=== PATIENT | male | born 1955 | race Caucasian/White ===

== ENCOUNTER 2017-06-03 05:40 | Day surgery (SDC) | payer OTHER ==
[~2017-06-03] VITALS: Ht 177.8 cm; Wt 95.2 kg
[~2017-06-03 05:40] MED LIST: CO Q-10100 MG PO; FISH OIL 1,0001 EAC3 PO; LOSARTAN POTASS25 MG PO; MELOXICAM15 MG PO; ONE DAILY1 EAC1 PO; VITAMIN C1000 MG PO; VITAMIN D31000 UNI1 PO; ZINC50 MG PO; ZYRTEC10 MG PO
--- NOTE | 2017-06-03 08:04 | NUR ---
06/03/17 0804 Zelda Addison 0605-PATIENT ARRIVED TO PACU ON 8L MASK O2 SAT 100% PATIENT NONAROUSABLE. ORAL AIRWAY IN PLACE. RIGHT KNEE DRESSING CDI. SR. GOOD CAP REFILL, WARMTH AND PEDAL PULSE TO RLE.
--- NOTE | 2017-06-03 08:39 | NUR ---
ICED WATER AND COFFEE GIVEN. CALL LIGHT W/IN REACH. DAUGHTER @ BS.
[2017-06-03] MEDS ORDERED: ULTRAM50 MG PO (09:05)
--- NOTE | 2017-06-03 09:27 | NUR ---
PT UP TO BR W/RN STANDBY. PT AMBULATES WELL AND REPORTS SUCCESSFUL VOID. PT DRINKING COFFEE AND REQ DC HOME. DC INSTRUCTIONS GIVEN IN PRESENCE OF DAUGHTER AND BOTH VERBALIZE UNDERSTANDING. PT DRESSING SELF AND DAUGHTER GETTING THE CAR.
--- NOTE | 2017-06-08 11:45 | OR ---
[facility] [address] [place], [place] [address] Signed DATE OF OPERATION: 06/03/2017 SURGEON: Arcadio Meyer MD PREOPERATIVE DIAGNOSIS: Medial meniscal tear and ACL tear, right knee. POSTOPERATIVE DIAGNOSIS: Medial meniscal tear, right knee. Areas of grade 2 to grade 3 chondral change management analyst the weightbearing portion of the medial femoral condyle with reciprocal grade 2 to grade 3 changes over the posterior aspect of the tibial plateau medially. PROCEDURE: Knee arthroscopy with partial medial meniscectomy. ANESTHESIA: General. SPECIMENS AND COMPLICATIONS: There were no specimens or complications. TOURNIQUET TIME: About 25 minutes. WHAT WAS DONE: The patient was taken to the operating room, placed on the table in a supine position. After anesthesia was induced and airway secured, the patient was positioned and prepped and draped in a routine sterile fashion. The leg was exsanguinated with an Esmarch bandage. Pneumatic tourniquet was inflated to 300 mmHg pressure. The outflow cannula was placed superomedially and the arthroscope was placed anterolaterally. An anteromedial portal was created using transillumination and localization with a spinal needle. We then did a diagnostic arthroscopy. Arthroscopy of the knee revealed a moderate hypertrophic synovitis in the suprapatellar pouch, but no foreign bodies. There was mild grade 1 to grade 2 change in the patellofemoral joint. The medial recess was unremarkable. The medial compartment revealed a complex tear of the posterior horn of the medial meniscus along with significant chondral changes over the weightbearing portion of the femoral condyle and over the posterior aspect of the tibial plateau. Intercondylar notch revealed an intact ACL. We tested it with a probe and also with Marion's maneuver with the scope in place and it seemed to be both physically intact and functionally intact. The lateral compartment then was examined and that was Electronically Signed By: ARCADIO MEYER MD 06/08/17 1145 PATIENT NAME: DANIE DALAL OPERATIVE REPORT DATE OF : 59 REPORT #: [id number] PHYSICIAN: ARCADIO MEYER MD PCP: KYE MILLS PAC REPORT IS CONFIDENTIAL AND NOT TO BE RELEASED WITHOUT AUTHORIZATION [facility] [address] [place], [place] [address] Signed unremarkable. The lateral meniscus, lateral femoral condyle, and the lateral tibial plateau were overall unremarkable. We were then able to move the scope in the lateral recess and there were no additional findings. We then returned the scope to the medial compartment. Using basket forceps, we completed the meniscal tear. Several shards were then drawn out of the knee. We then used a 4-0 motorized shaver to gently debride the edges of the meniscectomy and smooth and contour the edges. The knee was then copiously irrigated and drained. We sought any residual meniscal shards again in the medial lateral recess and the suprapatellar pouch and found none. The knee was then copiously irrigated and drained. The portals were closed with 3-0 nylon and a sterile dressing applied. The patient was awakened, taken to the recovery room where he arrived in stable condition. Counts were correct and antibiotic protocols were followed. Arcadio Meyer MD WFB/MODL /[id number] Copies: ~ Electronically Signed By: ARCADIO MEYER MD 06/08/17 1145 PATIENT NAME: DANIE DALAL SHANNAN OPERATIVE REPORT DATE OF : 59 REPORT #: [id number] PHYSICIAN: ARCADIO MEYER MD PCP: KYE MILLS PAC REPORT IS CONFIDENTIAL AND NOT TO BE RELEASED WITHOUT AUTHORIZATION
== END 2017-06-03 09:35 | disposition home or self-care (01) ==
LOC: DS 05:40 → OPS 05:40 → DS 08:30 → OPS 09:35
PROVIDERS: Orthopaedic Surgery
PROC: 0SBC4ZZ Excision of Right Knee Joint, Percutaneous Endoscopic Approach (ICD-10-PCS; principal; 2017-06-03 06:45)
DX: S83.231A Complex tear of medial meniscus, current injury, right knee, initial encounter (principal); I10 Essential (primary) hypertension; F17.210 Nicotine dependence, cigarettes, uncomplicated; Z79.899 Other long term (current) drug therapy; X58.XXXA Exposure to other specified factors, initial encounter
CPT/HCPCS: 01400; J0131; J0690; J1100; J1885; J2405; J2704; J3301; J3475; J7120

== ENCOUNTER 2019-02-27 06:25 | Day surgery (SDC) | payer OTHER ==
[~2019-02-27 06:25] MED LIST changes: +HYDROCHLOROTH12.5 MG PO; +ULTRAM50 MG PO
--- NOTE | 2019-02-27 08:31 | NUR ---
02/27/19 0831 Kellie Valles 0821- PT ARRIVES TO PACU EASILY AROUSABLE TO VOICE. PT REPORTS NO PAIN OR NAUSEA AND FALLS BACK TO SLEEP. RESP EVEN AND UNLABORED. OXYGEN SAT MID 90'S ON RA. 0829- PT REQUESTING COFFEE. PT SAT UP IN BED. TOLERATING WELL. COFFEE GIVEN.
--- NOTE | 2019-02-27 15:57 | OR ---
[facility] [address] [place], [place] [address] Signed DATE OF OPERATION: 02/27/2019 SURGEON: Eryn Reynaga MD PREOPERATIVE DIAGNOSIS: History of multiple polyps in 2018 at least three tubular adenomas. POSTOPERATIVE DIAGNOSES: 1. Multiple hyperplastic polyps of rectosigmoid. 2. Polyp of left transverse and hepatic flexure and possible polyp of cecum. PROCEDURE: Total colonoscopy to cecum with cold morcellation polypectomy x8. ANESTHESIA: Intravenous sedation; fentanyl 100 mcg, Versed 5 mg. INDICATION: A 63-year-old white man, a patient of [facility], underwent colonoscopy by nc in 2018, at which time he was found to have at least six polyps; three of which were tubular adenomas. Short-term followup was recommended. He was admitted to undergo surveillance colonoscopy, understand the risks of bleeding, infection, perforation. FINDINGS: The prep was excellent. Complete colonoscopy was undertaken of the cecum. There appeared to be two small polyps; one at the cecum, the other at the hepatic flexure and another at the left transverse colon. These were small and completely excised and the rectosigmoid were multiple small polyps, most likely hyperplastic. DESCRIPTION OF PROCEDURE: The patient was brought to the endoscopy suite and placed in lateral decubitus position, given intravenous sedation to the point of slurred speech and nystagmus with full cardiopulmonary monitoring. An Olympus video colonoscope was passed in the rectum after normal digital rectal examination and manipulated around the colon ultimately intubating the cecum, prep was quite good. There was an area suggestive of small polyp of the cecum. This was excised. It was uncertain if this was truly a polyp. The scope was then withdrawn and at the hepatic flexure was certifiable polyp probably adenomatous based on narrow band imaging. This was excised with cold morcellation technique. Further withdrawal to the Electronically Signed By: ERYN REYNAGA MD 02/27/19 1557 PATIENT NAME: DANIE DALAL OPERATIVE REPORT DATE OF : 59 REPORT #: [id number] PHYSICIAN: ERYN REYNAGA MD PCP: YENIFER HARRELL PAC REPORT IS CONFIDENTIAL AND NOT TO BE RELEASED WITHOUT AUTHORIZATION [facility] [address] [place], [place] [address] Signed splenic flexure, left transverse colon showed a similar such polyp, which was excised. Careful withdrawal of scope showed no other abnormality into the rectosigmoid at about 15-20 cm. There were multiple small polyps, almost certainly hyperplastic, many were excised, certainly more than five, but virtually all were hyperplastic most likely. Retroflexed view showed no other abnormalities. Scope was removed. The patient taken to recovery room in good condition. CONCLUDING DIAGNOSIS: Multiple polyps dominantly hyperplastic. PLAN: We will await pathology report before determining interval for repeat scope. I would like to see him back in one year unless all the polyps proved to be hyperplastic in which case a delayed interval for repeat colonoscopy could be undertaken. MD IVANIA Sheikh/PUNEET /[id number] cc: Yenifer Harrell PA-C Copies: YENIFER HARRELL ~ Electronically Signed By: ERYN REYNAGA MD 02/27/19 1557 PATIENT NAME: DANIE DALAL SHANNAN OPERATIVE REPORT DATE OF : 59 REPORT #: [id number] PHYSICIAN: ERYN REYNAGA MD PCP: YENIFER HARRELL REPORT IS CONFIDENTIAL AND NOT TO BE RELEASED WITHOUT AUTHORIZATION
--- NOTE | 2019-02-28 14:47 | PATH ---
[facility] [address] [place], [place] [address] Signed SPECIMEN(S): A CECAL POLYP SPECIMEN(S): B HEPATIC FLEXURE POLYP SPECIMEN(S): C TRANSVERSE POLYP SPECIMEN(S): D SIGMOID POLYP SPECIMEN SOURCE: A. CECAL POLYP B. HEPATIC FLEXURE POLYP C. TRANSVERSE POLYP D. SIGMOID POLYP CLINICAL HISTORY: History of colon polyps. Post-op: Multiple polyps, rectosigmoid and other polyps. MICROSCOPIC DESCRIPTION: Histologic sections of all submitted blocks are examined by light microscopy. These findings, together with the gross examination, support the pathologic diagnosis. FINAL PATHOLOGIC DIAGNOSIS: A. Mucosa, cecum, biopsy: - No microscopic pathologic diagnosis (Polyp, clinical. See Comment). B. Mucosa, colon, hepatic flexure, biopsy: - Tubular adenoma. C. Mucosa, transverse colon, biopsy: - No microscopic pathologic diagnosis (Polyp, clinical. See Comment). D. Mucosa, sigmoid colon, biopsy: - Hyperplastic polyp. COMMENT: A and C: Multiple levels over three slides are examined. No adenomatous or hyperplastic change is seen. LJA:cml:C2NR GROSS DESCRIPTION: Four specimens are received in four containers, labeled "DW." A. The specimen, labeled "DW, #1," is received in formalin and consists of four iglesias soft tissue fragments that measure 0.2-0.3 cm in greatest dimension. The specimen is entirely submitted in cassette (A1). B. The specimen, labeled "DW, #2," is received in formalin and consists of two PATIENT NAME: DANIE DALAL PATHOLOGY DATE OF : 59 REPORT #: [id number] PHYSICIAN: HERLINDA ANDRADE PCP: KYE MILLS PAC REPORT IS CONFIDENTIAL AND NOT TO BE RELEASED WITHOUT AUTHORIZATION [facility] [address] [place], [place] [address] Signed iglesias soft tissue fragments that measure 0.2 and 0.3 cm in greatest dimension. The specimen is entirely submitted in cassette (B1). C. The specimen, labeled "DW, #3," is received in formalin and consists of one iglesias soft tissue fragment that measures 0.3 cm in greatest dimension. The specimen is entirely submitted in cassette (C1). D. The specimen, labeled "DW, #4," is received in formalin and consists of multiple iglesias soft tissue fragments that measure 0.2- 0.4 cm in greatest dimension. The specimen is entirely submitted in cassette (D1). FB (under the direct supervision of a pathologist) The Gross Description was prepared using a voice recognition system. The report was reviewed for accuracy; however, sound-alike word errors, addition and/or deletions may occur. If there is any question about this report, please contact Client Services. PERFORMING LABORATORY: The technical component was performed by [facility] [address] (Copy Center Associate: Yolette Hancock MD; CLIA# [id number]). [facility], [address] [address] (Copy Center Associate: Rosendo Fine MD; CLIA# [id number]). Diagnostician: Rosendo Fine MD Pathologist Electronically Signed 02/28/2019 Copies: ~ PATIENT NAME: DANIE DALAL PATHOLOGY DATE OF : 59 REPORT #: [id number] PHYSICIAN: HERLINDA PATHOLOGY PCP: KYE MILLS PAC REPORT IS CONFIDENTIAL AND NOT TO BE RELEASED WITHOUT AUTHORIZATION
== END 2019-02-27 09:05 | disposition home or self-care (01) ==
LOC: OPS 06:25 → DS 06:25 → OPS 06:45 → DS 06:45 → OPS 09:05
PROVIDERS: Surgery
PROC: 0DBL8ZZ Excision of Transverse Colon, Via Natural or Artificial Opening Endoscopic (ICD-10-PCS; 2019-02-27)
PROC: 0DBN8ZZ Excision of Sigmoid Colon, Via Natural or Artificial Opening Endoscopic (ICD-10-PCS; 2019-02-27)
PROC: 0DBH8ZZ Excision of Cecum, Via Natural or Artificial Opening Endoscopic (ICD-10-PCS; principal; 2019-02-27 06:45)
DX: Z12.11 Encounter for screening for malignant neoplasm of colon (principal); D12.3 Benign neoplasm of transverse colon; K63.5 Polyp of colon; I10 Essential (primary) hypertension; G47.30 Sleep apnea, unspecified; F17.210 Nicotine dependence, cigarettes, uncomplicated; Z86.010 Personal history of colon polyps; Z91.041 Radiographic dye allergy status; Z91.013 Allergy to seafood; Z80.0 Family history of malignant neoplasm of digestive organs; Z79.899 Other long term (current) drug therapy
CPT/HCPCS: 99153; G0500; J2250; J3010; J7121